=== PATIENT | male | born 1975 | race American Indian/Alaskan Native ===

== ENCOUNTER 2017-03-30 21:42 | Emergency (ER) | payer OTHER ==
--- NOTE | 2017-03-30 22:10 | EDM.PDOC ---
ED HPI GENERAL MEDICAL PROBLEM - General Chief Complaint: Upper Extremity Injury/Pain Stated Complaint: BY AMBULANCE Time Seen by Provider: 03/30/17 22:07 Source of Information: Reports: Patient History Limitations: Reports: No Limitations - History of Present Illness INITIAL COMMENTS - FREE TEXT/NARRATIVE: states been coughing a lot past few days and today coughed so hard he blacked out and fell onto right wrist. denies head/neck pain/ denies CP/SOB Right Wrist Pain Score (Numeric/FACES): 9 - Related Data Allergies Allergy/AdvReac Type Severity Reaction Status Date / Time No Known Allergies Allergy Verified 03/30/17 22:27 Home Meds: Home Meds . [No Known Home Meds] 05/10/15 [History] Social & Family History - Tobacco Use Smoking Status *Q: Current Every Day Smoker Years of Tobacco use: 5 Used Tobacco, but Quit: No Second Hand Smoke Exposure: Yes - Alcohol Use Days Per Week of Alcohol Use: 1 Number of Drinks Per Day: 6 Total Drinks Per Week: 6 - Recreational Drug Use Recreational Drug Use: No Review of Systems - Review of Systems Review Of Systems: ROS reveals no pertinent complaints other than HPI. ED EXAM, GENERAL - Physical Exam Exam: See Below Exam Limited By: No Limitations General Appearance: Alert, WD/WN, Mild Distress, Other (discomfort) Ears: Hearing Grossly Normal Throat/Mouth: Normal Voice, No Airway Compromise Head: Atraumatic Neck: Non-Tender, Full Range of Motion Respiratory/Chest: No Respiratory Distress, No Accessory Muscle Use, Rhonchi Cardiovascular: Regular Rate, Rhythm GI/Abdominal: Soft, Non-Tender Extremities: Limited Range of Motion, Other (right wrist swollen tender R/P, NV wnl) Neurological: Alert, Oriented, Normal Cognition, Normal Gait, No Motor/Sensory Deficits Psychiatric: Anxious Skin Exam: Warm, Dry Lymphatic: No Adenopathy Course - Vital Signs Last Recorded V/S: Last Vital Signs Temp 37.1 C 03/30/17 23:30 Pulse 99 03/30/17 23:30 Resp 18 03/30/17 23:30 BP 148/83 H 03/30/17 23:30 Pulse Ox 97 03/30/17 23:30 - Orders/Labs/Meds Orders: Active Orders 24 hr Category Date Time Status Chest 2V [CR] Urgent Exams 03/30/17 22:06 Stop Req Wrist Comp Min 3V Rt [CR] Urgent Exams 03/30/17 22:06 Stop Req Labs: Laboratory Tests 03/30/17 03/30/17 Range/Units 22:15 22:15 WBC 10.3 H (5.0-10.0) 10^3/uL RBC 4.48 L (4.6-6.2) 10^6/uL Hgb 14.3 (14.0-18.0) g/dL Hct 41.4 (40.0-54.0) % MCV 92.4 (80-100) fL MCH 31.9 (27.0-34.0) pg MCHC 34.5 (33.0-35.0) g/dL Plt Count 324 (150-450) 10^3/uL Neut % (Auto) 44.9 (42.2-75.2) % Lymph % (Auto) 42.2 (20.5-50.1) % [place] % (Auto) 10.9 H (2-8) % Eos % (Auto) 1.6 (1.0-3.0) % Baso % (Auto) 0.4 (0.0-1.0) % Sodium 143 (135-145) mmol/L Potassium 3.6 (3.6-5.0) mmol/L Chloride 107 (101-111) mmol/L Carbon Dioxide 25.0 (21.0-31.0) mmol/L Anion Gap 14.6 BUN 14 (7-18) mg/dL Creatinine 0.9 (0.6-1.3) mg/dL Est Cr Clr Drug Dosing TNP Estimated GFR (MDRD) > 60 BUN/Creatinine Ratio 15.55 Glucose 134 H (74-105) mg/dL Calcium 8.6 (8.4-10.2) mg/dl Total Bilirubin 0.4 (0.2-1.0) mg/dL AST 30 (10-42) IU/L ALT 36 (10-60) IU/L Alkaline Phosphatase 74 (42-121) IU/L Total Protein 7.9 (6.7-8.2) g/dl Albumin 3.8 (3.2-5.5) g/dl Globulin 4.1 Albumin/Globulin Ratio 0.93 Ethyl Alcohol 235 mg/dL Meds: Medications Discontinued Medications Generic Name Dose Route Start Last Admin Trade Name Freq PRN Reason Stop Dose Admin Hydrocodone Bitart/Acetaminophen 1 tab 03/30/17 23:16 03/30/17 23:24 [place] 325-10 Mg PO 03/30/17 23:17 1 tab ONETIME ONE Administration Sodium Chloride 1,000 mls @ 999 mls/hr 03/30/17 22:11 03/30/17 22:31 Normal Saline IV 03/30/17 23:11 999 mls/hr .BOLUS ONE Administration - Re-Assessments/Exams Free Text/Narrative Re-Assessment/Exam: 03/30/17 23:17 results discussed with pt. Departure - Departure Time of Disposition: 23:30 Disposition: Home, Self-Care 01 Condition: Good Clinical Impression: Bronchitis Carpal bone fracture Qualifiers: Encounter type: initial encounter Carpal bone: scaphoid Scaphoid bone location : middle third Fracture type: closed Fracture alignment: nondisplaced Laterality : right Qualified Code(s): S62.024A - Nondisplaced fracture of middle third of navicular [scaphoid] bone of right wrist, initial encounter for closed fracture - Discharge Information Instructions: Wrist Fracture Treated With Immobilization, [id number]-[id number] Forms: ED Department Discharge Additional Instructions: 1) wear splint and sling until re-evaluate by ORTHOPEDIST 2) see clinic Sunday for ORTHOPEDIC REFERRAL for wrist fracture 3) ice intermittently to wrist for swelling rx given; vicodin 5/325mg bid prn pain x 12 - My Orders Last 24 Hours: My Active Orders 03/30/17 22:06 Chest 2V [CR] Urgent Wrist Comp Min 3V Rt [CR] Urgent - Assessment/Plan Last 24 Hours: My Active Orders 03/30/17 22:06 Chest 2V [CR] Urgent Wrist Comp Min 3V Rt [CR] Urgent
[2017-03-30] MEDS ORDERED: Sodium Chloride 0.9% 1,000 ML IV ONE (22:11)
[2017-03-30 22:44] LABS: CHLORIDE,CL 107 mmol/L (101-111); SODIUM,NA 143 mmol/L (135-145)
[2017-03-30] MEDS ORDERED: Acetaminophen/HYDROcodone 325-10 MG Tab PO ONE (23:16)
[2017-03-31 01:25] VITALS: BP 148/83
== END 2017-03-30 23:31 | disposition home or self-care (01) ==
LOC: DL.ED 21:42
DX: S62.024A Nondisplaced fracture of middle third of navicular [scaphoid] bone of right wrist, initial encounter for closed fracture (principal); J40 Bronchitis, not specified as acute or chronic; F17.200 Nicotine dependence, unspecified, uncomplicated; W19.XXXA Unspecified fall, initial encounter; Y90.8 Blood alcohol level of 240 mg/100 ml or more
CPT/HCPCS: 36415; 71020; 73110; 80053; 85025; 96365; 99284; A9270; G0480; J7030

== ENCOUNTER 2018-02-23 11:07 | Emergency (ER) | payer MEDICAID, OTHER ==
[2018-02-23 11:23] VITALS: BP 150/97
--- NOTE | 2018-02-24 08:08 | EDM.PDOC ---
Scribed by Paige Mccall 02/23/18 1343 for Adela Adair NP ED HPI GENERAL MEDICAL PROBLEM - General Chief Complaint: Lower Extremity Injury/Pain Stated Complaint: [id number] RIGHT KNEE DAMAGE Time Seen by Provider: 02/23/18 12:00 Source of Information: Reports: Patient, RN, RN Notes Reviewed History Limitations: Reports: No Limitations - History of Present Illness INITIAL COMMENTS - FREE TEXT/NARRATIVE: Patient presents to ER with complaint of right knee pain. Patient states [place] and twisted the right knee. Patient states he has history of ACL tear. He walked into the ER using crutches. Patient states severe pain with stepping on it. He has sharp pain 10/10. States pain is posterior and anterior. Onset Date: 02/22/18 Duration: Getting Worse Location: Reports: Lower Extremity, Right Quality: Reports: Ache Severity: Severe Improves with: Reports: None Worsens with: Reports: None Associated Symptoms: Reports: No Other Symptoms Right Knee Pain Score (Numeric/FACES): 10 - Related Data Allergies Allergy/AdvReac Type Severity Reaction Status Date / Time No Known Allergies Allergy Verified 03/30/17 22:27 Home Meds: Home Meds . [No Known Home Meds] 05/10/15 [History] Past Medical History - Past Health History Medical/Surgical History: Denies Medical/Surgical History Social & Family History - Tobacco Use Smoking Status *Q: Never Smoker - Caffeine Use Caffeine Use: Reports: Coffee, Soda - Alcohol Use Date of Last Drink: 09/03/17 Time of Last Drink: 21:00 - Recreational Drug Use Recreational Drug Use: No Review of Systems - Review of Systems Review Of Systems: ROS reveals no pertinent complaints other than HPI. ED EXAM, GENERAL - Physical Exam Exam: See Below Exam Limited By: No Limitations General Appearance: Alert, WD/WN, No Apparent Distress Eye Exam: Bilateral Eye: Normal Inspection Ears: Normal External Exam, Normal Canal, Hearing Grossly Normal, Normal TMs Nose: Normal Inspection, Normal Mucosa, No Blood Throat/Mouth: Normal Inspection, Normal Lips, Normal Teeth, Normal Gums, Normal Oropharynx, Normal Voice, No Airway Compromise Head: Atraumatic, Normocephalic Neck: Normal Inspection, Supple, Non-Tender, Full Range of Motion Respiratory/Chest: No Respiratory Distress, Lungs Clear, Normal Breath Sounds, No Accessory Muscle Use, Chest Non-Tender Cardiovascular: Normal Peripheral Pulses, Regular Rate, Rhythm, No Edema, No Gallop, No JVD, No Murmur, No Rub GI/Abdominal: Normal Bowel Sounds, Soft, Non-Tender, No Organomegaly, No Distention, No Abnormal Bruit, No Mass (Male) Exam: Deferred Rectal (Males) Exam: Deferred Back Exam: Normal Inspection, Full Range of Motion, NT Extremities: Other (Right knee swelling. Decreased range of motion. Leg pain. ) Neurological: Alert, Oriented, CN II-XII Intact, Normal Cognition, Normal Gait, Normal Reflexes, No Motor/Sensory Deficits Psychiatric: Normal Affect, Normal Mood Skin Exam: Warm, Dry, Intact, Normal Color, No Rash Lymphatic: No Adenopathy ED TRAUMA EXTREMITY PROCEDURES - Splinting Right Lower Extremity Splint Site: Right knee Pre-Procedure NV Status: Normal Post-Procedure NV Status: Normal Splint Material: Velcro Applied & Form Fitted By: Nurse Provider Post-Splint Application NV Check: NV Status Normal, Good Position Complications: No Course - Vital Signs Last Recorded V/S: Last Vital Signs Temp 98.3 F 02/23/18 11:22 Pulse 100 02/23/18 11:22 Resp 18 02/23/18 11:22 BP 150/97 H 02/23/18 11:22 Pulse Ox 99 02/23/18 11:22 - Radiology Interpretation Free Text/Narrative:: Right knee xray: IMPRESSION: 1. There are mild degenerative changes of the knee joint, predominantly involving the medial joint compartment. 2. Fluid is present within the suprapatellar bursa. 3. Prepatellar soft tissue swelling is present. 4. No acute fracture or dislocation. Thank you for allowing us to participate in the care of your patient. See rad report Departure - Departure Time of Disposition: 13:41 Disposition: Home, Self-Care 01 Condition: Fair Clinical Impression: Sprain of knee - Discharge Information Instructions: Crutch Use, Adult, [id number], Knee Sprain, Adult, [id number] , Muscle Strain, [id number], How to Use a Knee Immobilizer, [id number] Referrals: PCP,None [Primary Care Provider] - Forms: ED Department Discharge Additional Instructions: May use tylenol and/or ibuprofen as directed for pain Follow up with your primary care facility for MRI of knee and ortho referral Use knee immobilizer and crutches until seen by ortho Elevate, ice as tolerated I have read and agree with the documentation that has been completed regarding this visit. By signing this record, I attest that the documentation was completed in my physical presence and is an accurate record of the encounter.
== END 2018-02-23 14:01 | disposition home or self-care (01) ==
LOC: DL.ED 11:07
DX: S83.91XA Sprain of unspecified site of right knee, initial encounter (principal); W19.XXXA Unspecified fall, initial encounter
CPT/HCPCS: 73564-RT; 99283

== ENCOUNTER 2018-09-15 19:23 | Emergency (ER) | payer MEDICAID, OTHER ==
[2018-09-15 19:30] VITALS: BP 147/90
[2018-09-15 21:37] LABS: ANION GAP 14.8; CHLORIDE,CL 102 mmol/L (101-111); SODIUM,NA 135 mmol/L (135-145)
--- NOTE | 2018-09-15 21:52 | EDM.PDOC ---
ED HPI GENERAL MEDICAL PROBLEM - General Chief Complaint: Lower Extremity Injury/Pain Stated Complaint: AMBULANCE Time Seen by Provider: 09/15/18 20:00 Source of Information: Reports: Patient History Limitations: Reports: No Limitations - History of Present Illness INITIAL COMMENTS - FREE TEXT/NARRATIVE: ED via [facility] with c/o pain to left lower leg and ankle for past 3 weeks. Pain greatest after being on it all day while at work. Describes redness then around sock area, Voices concern if area infected, had 2 sores on ankle when original discomfort astarted. Denies fever or chills. Denies injury to ankle or foot. - Related Data Allergies Allergy/AdvReac Type Severity Reaction Status Date / Time No Known Allergies Allergy Verified 09/15/18 19:30 Home Meds: Home Meds Lisinopril 10 mg PO DAILY 09/15/18 [History] Past Medical History - Past Health History Medical/Surgical History: Denies Medical/Surgical History Cardiovascular History: Reports: Hypertension Psychiatric History: Reports: Addiction - Infectious Disease History Infectious Disease History: Reports: Hepatitis C Social & Family History - Tobacco Use Smoking Status *Q: Never Smoker Second Hand Smoke Exposure: No - Caffeine Use Caffeine Use: Reports: Coffee, Soda - Recreational Drug Use Recreational Drug Use: No Review of Systems - Review of Systems Review Of Systems: ROS reveals no pertinent complaints other than HPI. ED EXAM, GENERAL - Physical Exam Exam: See Below Exam Limited By: No Limitations General Appearance: Alert, No Apparent Distress Eye Exam: Bilateral Eye: EOMI Ears: Normal External Exam Nose: Normal Inspection Throat/Mouth: Normal Inspection Head: Atraumatic, Normocephalic Neck: Normal Inspection Respiratory/Chest: No Respiratory Distress, Lungs Clear Cardiovascular: Normal Peripheral Pulses, Regular Rate, Rhythm Back Exam: Normal Inspection, Full Range of Motion Extremities: Normal Inspection, Normal Range of Motion. No: Slow Capillary Refill, Joint Swelling Neurological: Alert, Oriented, CN II-XII Intact, Normal Cognition, Normal Gait, Normal Reflexes, No Motor/Sensory Deficits Psychiatric: Flat Affect Skin Exam: Warm, Dry, Intact Course - Vital Signs Last Recorded V/S: Last Vital Signs Temp 98.1 F 09/15/18 19:27 Pulse 98 09/15/18 19:27 Resp 18 09/15/18 19:27 BP 147/90 H 09/15/18 19:27 Pulse Ox 97 09/15/18 19:27 - Orders/Labs/Meds Labs: Laboratory Tests 09/15/18 09/15/18 Range/Units 21:11 21:11 WBC 8.7 (5.0-10.0) 10^3/uL RBC 4.96 (4.6-6.2) 10^6/uL Hgb 15.7 (14.0-18.0) g/dL Hct 45.4 (40.0-54.0) % MCV 91.5 (80-100) fL MCH 31.7 (27.0-34.0) pg MCHC 34.6 (33.0-35.0) g/dL Plt Count 296 (150-450) 10^3/uL Neut % (Auto) 61.9 (42.2-75.2) % Lymph % (Auto) 26.5 (20.5-50.1) % [place] % (Auto) 8.9 H (2-8) % Eos % (Auto) 2.5 (1.0-3.0) % Baso % (Auto) 0.2 (0.0-1.0) % Sodium 135 (135-145) mmol/L Potassium 3.8 (3.6-5.0) mmol/L Chloride 102 (101-111) mmol/L Carbon Dioxide 22.0 (21.0-31.0) mmol/L Anion Gap 14.8 BUN 21 H (7-18) mg/dL Creatinine 1.1 (0.6-1.3) mg/dL Est Cr Clr Drug Dosing 88.48 mL/min Estimated GFR (MDRD) > 60 BUN/Creatinine Ratio 19.09 Glucose 105 (74-105) mg/dL Uric Acid 6.6 (2.6-7.2) mg/dL Calcium 8.6 (8.4-10.2) mg/dl Total Bilirubin 0.6 (0.2-1.0) mg/dL AST 213 H (10-42) IU/L ALT 325 H (10-60) IU/L Alkaline Phosphatase 82 (42-121) IU/L Total Protein 8.3 H (6.7-8.2) g/dl Albumin 4.1 (3.2-5.5) g/dl Globulin 4.2 Albumin/Globulin Ratio 0.98 Departure - Departure Time of Disposition: 21:52 Disposition: Home, Self-Care 01 Condition: Good Clinical Impression: Elevated LFTs Left ankle pain Qualifiers: Chronicity: unspecified Qualified Code(s): M25.572 - Pain in left ankle and joints of left foot - Discharge Information *PRESCRIPTION DRUG MONITORING PROGRAM REVIEWED*: Yes *COPY OF PRESCRIPTION DRUG MONITORING REPORT IN PATIENT BLANCA: No Instructions: Joint Pain Forms: ED Department Discharge Additional Instructions: Follow up in clinic this week Ibuprofen 400mg every 6 hours as needed for discomfort edin wrap to left ankle while at work
== END 2018-09-15 22:00 | disposition home or self-care (01) ==
LOC: DL.ED 19:23
DX: M25.572 Pain in left ankle and joints of left foot (principal); R79.89 Other specified abnormal findings of blood chemistry; I10 Essential (primary) hypertension
CPT/HCPCS: 36415; 73610-LT; 80053; 84550; 85025; 99284

== ENCOUNTER 2020-06-26 22:12 | Emergency (ER) | payer MEDICAID, OTHER ==
[~2020-06-26 22:12] MED LIST: Glucagon,Human Recombinant 1 MG Vial IVPUSH ONE
--- NOTE | 2020-06-26 22:12 | EDM.PDOC ---
ED HPI GENERAL MEDICAL PROBLEM - General Stated Complaint: AMBULANCE Time Seen by Provider: 06/26/20 22:08 Source of Information: Reports: Patient, EMS History Limitations: Reports: Other (food lodgement) - History of Present Illness INITIAL COMMENTS - FREE TEXT/NARRATIVE: EMS called to py choking on meat per pt. pt retching able to talk some, distraught pointing to area of thyroid cartilage. - Related Data Allergies Allergy/AdvReac Type Severity Reaction Status Date / Time No Known Allergies Allergy Verified 09/15/18 19:30 Home Meds: Home Meds Lisinopril 10 mg PO DAILY 09/15/18 [History] Past Medical History - Past Health History Medical/Surgical History: Denies Medical/Surgical History Cardiovascular History: Reports: Hypertension Psychiatric History: Reports: Addiction - Infectious Disease History Infectious Disease History: Reports: Hepatitis C Social & Family History - Caffeine Use Caffeine Use: Reports: Coffee, Soda ED ROS ENT - Review of Systems Review Of Systems: Comprehensive ROS is negative, except as noted in HPI. ED EXAM, ENT - Physical Exam Exam: See Below Exam Limited By: No Limitations General Appearance: Alert, WD/WN, Anxious, Mild Distress, Moderate Distress, Other (upset) Ears: Hearing Grossly Normal Mouth/Throat: Drooling, Other (slight, drooling, retching mostly, able to give limited info, ) Head: Atraumatic Neck: Non-Tender, Full Range of Motion Respiratory/Chest: No Accessory Muscle Use, Rhonchi Cardiovascular: Regular Rate, Rhythm GI/Abdominal: Soft, Non-Tender (Male) Exam: Deferred Rectal (Males) Exam: Deferred Neurological: Alert, Oriented, Normal Cognition, Normal Gait, No Motor/Sensory Deficits Psychiatric: Anxious Skin: Warm, Dry, Normal Color Lymphatic: No Adenopathy Course - Vital Signs Last Recorded V/S: Last Vital Signs Temp 36.4 C 06/26/20 22:17 Pulse 97 06/26/20 22:17 Resp 22 H 06/26/20 22:17 BP 138/88 06/26/20 22:17 Pulse Ox 95 06/26/20 22:17 - Orders/Labs/Meds Labs: Laboratory Tests 06/26/20 06/26/20 Range/Units 22:10 22:10 WBC 8.9 (5.0-10.0) 10^3/uL RBC 4.68 (4.6-6.2) 10^6/uL Hgb 14.8 (14.0-18.0) g/dL Hct 43.7 (40.0-54.0) % MCV 93.4 (80-100) fL MCH 31.6 (27.0-34.0) pg MCHC 33.9 (33.0-35.0) g/dL Plt Count 327 (150-450) 10^3/uL Neut % (Auto) 41.4 L (42.2-75.2) % Lymph % (Auto) 42.1 (20.5-50.1) % [place] % (Auto) 8.7 H (2-8) % Eos % (Auto) 7.6 H (1.0-3.0) % Baso % (Auto) 0.2 (0.0-1.0) % Sodium 139 (136-145) mmol/L Potassium 3.9 (3.5-5.1) mmol/L Chloride 103 (98-107) mmol/L Carbon Dioxide 27 (21-32) mmol/L Anion Gap 12.9 (7-13) mEq/L BUN 20 H (7-18) mg/dL Creatinine 1.02 (0.70-1.30) mg/dL Est Cr Clr Drug Dosing 99.32 mL/min Estimated GFR (MDRD) > 60 BUN/Creatinine Ratio 19.6 (No establ ref range) Glucose 137 H (74-99) mg/dL Calcium 8.2 L (8.5-10.1) mg/dL Total Bilirubin 0.2 (0.2-1.0) mg/dL AST 98 H (15-37) U/L ALT 178 H (16-63) U/L Alkaline Phosphatase 125 H (46-116) U/L Total Protein 8.4 H (6.4-8.2) g/dL Albumin 3.8 (3.4-5.0) g/dL Globulin 4.6 Albumin/Globulin Ratio 0.8 Meds: Medications Discontinued Medications Generic Name Dose Route Start Last Admin Trade Name Freq PRN Reason Stop Dose Admin Glucagon 1 mg 06/26/20 22:07 06/26/20 22:14 Glucagen IVPUSH 06/26/20 22:08 1 mg ONETIME ONE Administration Sodium Chloride 1,000 mls @ 500 mls/hr 06/26/20 22:15 06/26/20 22:15 Normal Saline IV 500 mls/hr ASD[facility]RECTED [facility] Administration - Re-Assessments/Exams Free Text/Narrative Re-Assessment/Exam: 06/26/20 22:23 re-exam; pt able to cough up large chunk of meat and now feels much better. states it was some spicy meat is parents brought home. Departure - Departure Time of Disposition: 23:08 Disposition: Home, Self-Care 01 Condition: Good Clinical Impression: Obstruction of esophagus due to food impaction - Discharge Information Forms: ED Department Discharge Sepsis Event Note (ED) - Focused Exam Vital Signs: Vital Signs Temp Pulse Resp BP Pulse Ox 06/26/20 22:17 36.4 C 97 22 H 138/88 95
[2020-06-26] MEDS ORDERED: Sodium Chloride 0.9% 1,000 ML IV SCH (22:15)
[2020-06-26 22:21] VITALS: BP 138/88; PULSE 97
[2020-06-26 22:37] LABS: ANION GAP 12.9 mEq/L (7-13); CHLORIDE,CL 103 mmol/L (98-107); SODIUM,NA 139 mmol/L (136-145)
== END 2020-06-26 23:08 | disposition home or self-care (01) ==
LOC: DL.ED 22:12
DX: T18.128A Food in esophagus causing other injury, initial encounter (principal); I10 Essential (primary) hypertension; Z79.899 Other long term (current) drug therapy
CPT/HCPCS: 36415; 80053; 85025; 96374; 99284; J1610; J7030; 99283

== ENCOUNTER 2020-10-02 21:46 | Emergency (ER) | payer MEDICAID, OTHER ==
[2020-10-02 22:07] VITALS: BP 125/79; PULSE 104
--- NOTE | 2020-10-02 22:15 | EDM.PDOC ---
<Jan Lockhart - Last Filed: 10/03/20 04:24> ED HPI GENERAL MEDICAL PROBLEM - General Chief Complaint: Drug or Alcohol Abuse Stated Complaint: AMBULANCE Time Seen by Provider: 10/02/20 21:50 - Related Data Allergies Allergy/AdvReac Type Severity Reaction Status Date / Time No Known Allergies Allergy Verified 09/15/18 19:30 Home Meds: Home Meds Lisinopril 10 mg PO DAILY 09/15/18 [History] Course - Re-Assessments/Exams Free Text/Narrative Re-Assessment/Exam: 10/03/20 04:14 pt sleeping arousable, results discussed with pt who states pain returned. denies prior h/o CP or heart problems. all this occur while watching TV tonight. admits to etoh and meth usage today. 10/03/20 04:[address] Weaver @ who kindly accepted pt. Departure - Departure Time of Disposition: 04:24 Disposition: DC/Tfer to Acute Hospital 02 Condition: Fair Clinical Impression: Alcohol abuse, Methamphetamine abuse, NSTEMI (non-ST elevated myocardial infarction), Elevated LFTs - Discharge Information Forms: Interfacility Transfer EMTALA <Kelly Vicente - Last Filed: 10/03/20 11:44> ED HPI GENERAL MEDICAL PROBLEM - General Source of Information: Reports: Patient, EMS, RN, RN Notes Reviewed History Limitations: Reports: Intoxication - History of Present Illness INITIAL COMMENTS - FREE TEXT/NARRATIVE: Patient presents to the ED via EMS with complaints of left sided weakness and shortness of breath. The patient reports he has been drinking for >24 hours and fell asleep at approximately 1600 today; he woke up at 2000 at noted weakness to his left face, upper extremity, and lower extremity. He states he drank one liter of alcohol over the past 24 hours. He noted the shortness of breath shortly upon awaking this evening, as well. He denies a history of cardiac or neurologic events. He reports a history of hypertension, but is not currently taking any prescribed medication. He denies recent illness, fever, shaking chills, chest pain, palpitations, dyspepsia, nausea, vomiting, or diarrhea. He does attest to injecting methamphetamines within the past 24 hours; he denies tobacco or caffeine use. Past Medical History - Past Health History Medical/Surgical History: Denies Medical/Surgical History Cardiovascular History: Reports: Hypertension Psychiatric History: Reports: Addiction - Infectious Disease History Infectious Disease History: Reports: Hepatitis C Social & Family History - Family History Family Medical History: No Pertinent Family History - Caffeine Use Caffeine Use: Reports: Coffee, Soda ED ROS GENERAL - Review of Systems Review Of Systems: Comprehensive ROS is negative, except as noted in HPI. ED EXAM, NEURO - Physical Exam Exam: See Below Exam Limited By: Intoxication General Appearance: Alert, No Apparent Distress Eye Exam: Bilateral Eye: EOMI (Jerk-movement tracking), PERRL (3mm) Ears: Normal Canal, Hearing Grossly Normal, Normal TMs. No: Normal External Exam (Laceration to auricle of left ear) Nose: Normal Inspection, Normal Mucosa, No Blood. No: Nasal Tenderness, Nasal Swelling, Nasal Drainage Throat/Mouth: Normal Inspection, Normal Voice, No Airway Compromise Head Exam: Atraumatic, Normocephalic Neck: Normal Inspection, Supple, Non-Tender, Full Range of Motion Respiratory/Chest: No Accessory Muscle Use, Chest Non-Tender, Decreased Breath Sounds Cardiovascular: Normal Peripheral Pulses, No Edema, No JVD, No Murmur, Tachycardia, Gallop/S3 GI/Abdominal: Normal Bowel Sounds, Soft, Non-Tender, No Distention, No Mass, Pelvis Stable (Male) Exam: Deferred Rectal (Males) Exam: Deferred Neurological: Alert, Withdraws to Pain, Abnormal Finger to Nose, Abnormal Sensation, Abnormal Light Touch, Abnormal Motor. No: Straight Leg Raise (L), Straight Leg Raise (R) Extremities: Normal Range of Motion, No Pedal Edema, Normal Capillary Refill, Joint Swelling (To anterior aspect of left knee), Leg Pain (To anterior aspect of left knee) Psychiatric: Depressed Mood, Flat Affect Skin Exam: Warm, Intact, Normal Color, Diaphoretic, Other (Closed papular lesion to anterior aspect of left knee; Erythema and swelling surrounding lesion) Course - Vital Signs Last Recorded V/S: Last Vital Signs Temp 98.7 F 10/02/20 22:06 Pulse 104 H 10/02/20 22:06 Resp 16 10/02/20 22:06 BP 125/79 10/02/20 22:06 Pulse Ox 99 10/02/20 22:06 - Orders/Labs/Meds Labs: Laboratory Tests 10/02/20 10/02/20 10/02/20 Range/Units 22:18 22:18 22:18 WBC 8.1 (5.0-10.0) 10^3/uL RBC 4.56 L (4.6-6.2) 10^6/uL Hgb 14.2 (14.0-18.0) g/dL Hct 41.6 (40.0-54.0) % MCV 91.2 (80-100) fL MCH 31.1 (27.0-34.0) pg MCHC 34.1 (33.0-35.0) g/dL Plt Count 334 (150-450) 10^3/uL Neut % (Auto) 35.9 L (42.2-75.2) % Lymph % (Auto) 43.0 (20.5-50.1) % [place] % (Auto) 8.9 H (2-8) % Eos % (Auto) 12.0 H (1.0-3.0) % Baso % (Auto) 0.2 (0.0-1.0) % PT (9.0-12.0) SEC INR (0.9-1.2) APTT (22.0-34.0) SEC Sodium 145 (136-145) mmol/L Potassium 3.7 (3.5-5.1) mmol/L Chloride 108 H (98-107) mmol/L Carbon Dioxide 26 (21-32) mmol/L Anion Gap 14.7 H (7-13) mEq/L BUN 23 H (7-18) mg/dL Creatinine 0.94 (0.70-1.30) mg/dL Est Cr Clr Drug Dosing 107.78 mL/min Estimated GFR (MDRD) > 60 BUN/Creatinine Ratio 24.5 (No establ ref range) Glucose 116 H (74-99) mg/dL Lactic Acid 2.2 H* (0.4-2.0) mmol/L Calcium 8.1 L (8.5-10.1) mg/dL Magnesium 2.0 (1.8-2.4) mg/dL Total Bilirubin 0.1 L (0.2-1.0) mg/dL AST 104 H (15-37) U/L ALT 226 H (16-63) U/L Alkaline Phosphatase 139 H (46-116) U/L Troponin I 0.059 H* (0.000-0.056) ng/mL C-Reactive Protein 0.2 (0.0-0.9) mg/dL B-Natriuretic Peptide 7 (0-100) pg/ml Total Protein 7.7 (6.4-8.2) g/dL Albumin 3.6 (3.4-5.0) g/dL Globulin 4.1 Albumin/Globulin Ratio 0.9 Urine Color (YELLOW) Urine Appearance (CLEAR) Urine pH (5.0-9.0) Ur Specific [place] (1.005-1.030) Urine Protein (NEGATIVE) Urine Glucose (UA) (NEGATIVE) Urine Ketones (NEGATIVE) Urine Occult Blood (NEGATIVE) Urine Nitrite (NEGATIVE) Urine Bilirubin (NEGATIVE) Urine Urobilinogen (0.2-1.0) mg/dL Ur Leukocyte Esterase (NEGATIVE) Urine Opiates Screen (NEGATIVE) Ur Oxycodone Screen (NEGATIVE) Urine Methadone Screen (NEGATIVE) Ur Barbiturates Screen (NEGATIVE) U Tricyclic Antidepress (NEGATIVE) Ur Phencyclidine Scrn (NEGATIVE) Ur Amphetamine Screen (NEGATIVE) U Methamphetamines Scrn (NEGATIVE) Urine MDMA Screen (NEGATIVE) U Benzodiazepines Scrn (NEGATIVE) Urine Cocaine Screen (NEGATIVE) U Marijuana (THC) Screen (NEGATIVE) Ethyl Alcohol 213 (0) mg/dL SARS-CoV-2 RNA (NATI) (NEGATIVE) 10/03/20 10/03/20 10/03/20 Range/Units 02:06 03:01 03:29 WBC (5.0-10.0) 10^3/uL RBC (4.6-6.2) 10^6/uL Hgb (14.0-18.0) g/dL Hct (40.0-54.0) % MCV (80-100) fL MCH (27.0-34.0) pg MCHC (33.0-35.0) g/dL Plt Count (150-450) 10^3/uL Neut % (Auto) (42.2-75.2) % Lymph % (Auto) (20.5-50.1) % Treg[place] % (Auto) (2-8) % Eos % (Auto) (1.0-3.0) % Baso % (Auto) (0.0-1.0) % PT (9.0-12.0) SEC INR (0.9-1.2) APTT (22.0-34.0) SEC Sodium (136-145) mmol/L Potassium (3.5-5.1) mmol/L Chloride (98-107) mmol/L Carbon Dioxide (21-32) mmol/L Anion Gap (7-13) mEq/L BUN (7-18) mg/dL Creatinine (0.70-1.30) mg/dL Est Cr Clr Drug Dosing mL/min Estimated GFR (MDRD) BUN/Creatinine Ratio (No establ ref range) Glucose (74-99) mg/dL Lactic Acid 1.5 (0.4-2.0) mmol/L Calcium (8.5-10.1) mg/dL Magnesium (1.8-2.4) mg/dL Total Bilirubin (0.2-1.0) mg/dL AST (15-37) U/L ALT (16-63) U/L Alkaline Phosphatase (46-116) U/L Troponin I 0.069 H* (0.000-0.056) ng/mL C-Reactive Protein (0.0-0.9) mg/dL B-Natriuretic Peptide (0-100) pg/ml Total Protein (6.4-8.2) g/dL Albumin (3.4-5.0) g/dL Globulin Albumin/Globulin Ratio Urine Color Yellow (YELLOW) Urine Appearance Clear (CLEAR) Urine pH 5.5 (5.0-9.0) Ur Specific [place] 1.025 (1.005-1.030) Urine Protein Negative (NEGATIVE) Urine Glucose (UA) Negative (NEGATIVE) Urine Ketones Negative (NEGATIVE) Urine Occult Blood Negative (NEGATIVE) Urine Nitrite Negative (NEGATIVE) Urine Bilirubin Negative (NEGATIVE) Urine Urobilinogen 0.2 (0.2-1.0) mg/dL Ur Leukocyte Esterase Negative (NEGATIVE) Urine Opiates Screen (NEGATIVE) Ur Oxycodone Screen (NEGATIVE) Urine Methadone Screen (NEGATIVE) Ur Barbiturates Screen (NEGATIVE) U Tricyclic Antidepress (NEGATIVE) Ur Phencyclidine Scrn (NEGATIVE) Ur Amphetamine Screen (NEGATIVE) U Methamphetamines Scrn (NEGATIVE) Urine MDMA Screen (NEGATIVE) U Benzodiazepines Scrn (NEGATIVE) Urine Cocaine Screen (NEGATIVE) U Marijuana (THC) Screen (NEGATIVE) Ethyl Alcohol (0) mg/dL SARS-CoV-2 RNA (NATI) (NEGATIVE) 10/03/20 10/03/20 10/03/20 Range/Units 03:29 04:16 04:25 WBC (5.0-10.0) 10^3/uL RBC (4.6-6.2) 10^6/uL Hgb (14.0-18.0) g/dL Hct (40.0-54.0) % MCV (80-100) fL MCH (27.0-34.0) pg MCHC (33.0-35.0) g/dL Plt Count (150-450) 10^3/uL Neut % (Auto) (42.2-75.2) % Lymph % (Auto) (20.5-50.1) % [place] % (Auto) (2-8) % Eos % (Auto) (1.0-3.0) % Baso % (Auto) (0.0-1.0) % PT 10.4 (9.0-12.0) SEC INR 1.1 (0.9-1.2) APTT 26.0 (22.0-34.0) SEC Sodium (136-145) mmol/L Potassium (3.5-5.1) mmol/L Chloride (98-107) mmol/L Carbon Dioxide (21-32) mmol/L Anion Gap (7-13) mEq/L BUN (7-18) mg/dL Creatinine (0.70-1.30) mg/dL Est Cr Clr Drug Dosing mL/min Estimated GFR (MDRD) BUN/Creatinine Ratio (No establ ref range) Glucose (74-99) mg/dL Lactic Acid (0.4-2.0) mmol/L Calcium (8.5-10.1) mg/dL Magnesium (1.8-2.4) mg/dL Total Bilirubin (0.2-1.0) mg/dL AST (15-37) U/L ALT (16-63) U/L Alkaline Phosphatase (46-116) U/L Troponin I (0.000-0.056) ng/mL C-Reactive Protein (0.0-0.9) mg/dL B-Natriuretic Peptide (0-100) pg/ml Total Protein (6.4-8.2) g/dL Albumin (3.4-5.0) g/dL Globulin Albumin/Globulin Ratio Urine Color (YELLOW) Urine Appearance (CLEAR) Urine pH (5.0-9.0) Ur Specific [place] (1.005-1.030) Urine Protein (NEGATIVE) Urine Glucose (UA) (NEGATIVE) Urine Ketones (NEGATIVE) Urine Occult Blood (NEGATIVE) Urine Nitrite (NEGATIVE) Urine Bilirubin (NEGATIVE) Urine Urobilinogen (0.2-1.0) mg/dL Ur Leukocyte Esterase (NEGATIVE) Urine Opiates Screen Negative (NEGATIVE) Ur Oxycodone Screen Negative (NEGATIVE) Urine Methadone Screen Negative (NEGATIVE) Ur Barbiturates Screen Negative (NEGATIVE) U Tricyclic Antidepress Negative (NEGATIVE) Ur Phencyclidine Scrn Negative (NEGATIVE) Ur Amphetamine Screen Positive H (NEGATIVE) U Methamphetamines Scrn Positive H (NEGATIVE) Urine MDMA Screen Negative (NEGATIVE) U Benzodiazepines Scrn Negative (NEGATIVE) Urine Cocaine Screen Negative (NEGATIVE) U Marijuana (THC) Screen Negative (NEGATIVE) Ethyl Alcohol (0) mg/dL SARS-CoV-2 RNA (NATI) Negative (NEGATIVE) Meds: Medications Discontinued Medications Generic Name Dose Route Start Last Admin Trade Name Freq PRN Reason Stop Dose Admin Heparin Sodium (Porcine) 4,000 units 10/03/20 04:13 10/03/20 04:29 Heparin Sodium IVPUSH 10/03/20 04:14 4,000 units .BOLUS ONE Administration Multivitamins/Minerals 10 ml/ 1,011.2 mls @ 999 mls/hr 10/02/20 22:22 10/02/20 22:31 Folic Acid 1 mg/ Thiamine HCl IV 10/02/20 23:22 999 mls/hr 100 mg/ Lactated Ringer's ONETIME ONE Administration Heparin Sodium/Sodium Chloride 25,000 units in 500 mls @ 26.78 mls/hr 10/03/20 04:15 10/03/20 04:30 Heparin 25,000 Units In 1/2 Ns 500 Ml IV 12 units/kg/hr TITRATE LIAM 26.78 mls/hr Administration Protocol 12 UNITS/KG/HR Morphine Sulfate 4 mg 10/03/20 03:53 10/03/20 04:00 Morphine IVPUSH 10/03/20 03:54 4 mg ONETIME ONE Administration Ondansetron HCl 4 mg 10/03/20 03:53 10/03/20 03:58 Zofran IVPUSH 10/03/20 03:54 4 mg ONETIME ONE Administration Sepsis Event Note (ED) - Evaluation Sepsis Screening Result: No Definite Risk
[2020-10-02] MEDS ORDERED: MVI, Adult with Vitamin K 10 ML, Folic Acid 1 MG, Thiamine 100 MG in Lactated Ringers 1... IV ONE ×4 (22:22)
[2020-10-02 22:46] LABS: ANION GAP 14.7 mEq/L (7-13); CHLORIDE,CL 108 mmol/L (98-107); SODIUM,NA 145 mmol/L (136-145)
--- NOTE | 2020-10-02 23:33 | CR ---
PROCEDURE INFORMATION: Exam: XR Chest, 1 View Exam date and time: 10/02/2020 11:12 PM Age: 44 years old Clinical indication: Other: Chest pain TECHNIQUE: Imaging protocol: XR of the chest Views: 1 view. COMPARISON: CR Chest 2V 03/30/2017 10:35 PM FINDINGS: Lungs: Unremarkable. No consolidation. Pleural spaces: Unremarkable. No pleural effusion. No pneumothorax. Heart/Mediastinum: Unremarkable. No cardiomegaly. Bones/joints: Degenerative thoracic spine changes. IMPRESSION: 1. No acute findings. 2. No acute lung infiltrates or consolidation. 3. No pleural effusions. 4. Stable exam since 03/30/2017.
--- NOTE | 2020-10-02 23:43 | CT ---
PROCEDURE INFORMATION: Exam: CT Head Without Contrast Exam date and time: 10/02/2020 11:13 PM Age: 44 years old Clinical indication: Other: Left sided weakness; Additional info: Left side weakness TECHNIQUE: Imaging protocol: Computed tomography of the head without contrast. Radiation optimization: All CT scans at this facility use at least one of these dose optimization techniques: automated exposure control; mA and/or kV adjustment per patient size (includes targeted exams where dose is matched to clinical indication); or iterative reconstruction. COMPARISON: No relevant prior studies available. FINDINGS: Brain: Normal. No hemorrhage. Unremarkable white matter. No mass effect. Cerebral ventricles: No ventriculomegaly. Bones/joints: No acute fracture. Possible old left maxillary sinus anterior wall fracture. Recommend clinical correlation. Right TMJ joint is malaligned. The mandibular condyle is anteriorly positioned at the level of the articular eminence of the skull base. Left TMJ is aligned with the mandibular condyle within the articular fossa. Clinical significance of this TMJ joint asymmetry is uncertain. Recommend clinical correlation. Paranasal sinuses: Visualized sinuses are unremarkable. No fluid levels. Mastoid air cells: Visualized mastoid air cells are well aerated. Soft tissues: Unremarkable. IMPRESSION: 1. No acute intracranial abnormality. 2. No intracranial hemorrhage. 3. No large territory acute CVA. 4. No acute skull fracture. Possible old left anterior maxillary sinus wall fracture. 5. Malalignment of the right temporomandibular joint. Recommend clinical correlation.
[2020-10-03] MEDS ORDERED: Morphine 4 MG/ML Syringe IVPUSH ONE (03:53)
[2020-10-03] MEDS ORDERED: Ondansetron 4 MG/2 ML SDV IVPUSH ONE (03:53)
[2020-10-03] MEDS ORDERED: Heparin Sodium 5,000 Units/ML Vial IVPUSH ONE (04:13)
[2020-10-03] MEDS ORDERED: Heparin Sodium/0.45% NaCl 25,000 UNITS/500 ML BAG IV SCH (04:15)
== END 2020-10-03 04:52 ==
LOC: DL.ED 21:46
DX: I21.4 Non-ST elevation (NSTEMI) myocardial infarction (principal); F15.10 Other stimulant abuse, uncomplicated; I10 Essential (primary) hypertension; F10.129 Alcohol abuse with intoxication, unspecified; R79.89 Other specified abnormal findings of blood chemistry; Z20.822 Contact with and (suspected) exposure to COVID-19; Z79.899 Other long term (current) drug therapy; Y90.7 Blood alcohol level of 200-239 mg/100 ml
CPT/HCPCS: 36415; 70450; 71045; 80053; 80305; 80307; 81003; 83605; 83735; 83880; 84484; 85025; 85610; 85730; 86140; 87635; 93005; 96365; 96367; 96375; 99285; J1644; J2270; J2405; J3411; J7120; J3490; U0002

== ENCOUNTER 2021-02-06 01:34 | Emergency (ER) | payer MEDICAID ==
[2021-02-06 01:58] VITALS: BP 129/74; PULSE 88
[2021-02-06] MEDS ORDERED: Acetaminophen 500 MG Tab PO ONE (02:34)
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
== END 2021-02-06 04:29 | disposition home or self-care (01) ==
LOC: DL.ED 01:34
DX: M79.662 Pain in left lower leg (principal); Z79.899 Other long term (current) drug therapy; W22.8XXA Striking against or struck by other objects, initial encounter
CPT/HCPCS: 73590-LT; 99282; 99284; A9270-GY